=== PATIENT | female | born 1935 | race Caucasian/White ===

== ENCOUNTER → 2017-02-22 | Outpatient (CLI) | payer OTHER, MEDICARE | LOC: MMPC 09:00 | PROVIDERS: ATTEND Nurse Practitioner Family | DX: K57.90 Diverticulosis of intestine, part unspecified, without perforation or abscess without bleeding (principal); I10 Essential (primary) hypertension | CPT/HCPCS: 99214; G0463 ==

== ENCOUNTER → 2017-03-21 | Outpatient (CLI) | payer OTHER, MEDICARE | LOC: MOB LAB 13:10 | DX: N39.0 Urinary tract infection, site not specified (principal); R31.9 Hematuria, unspecified; R82.99 Other abnormal findings in urine | CPT/HCPCS: 81002; 87077; 87088; 87186 ×2; 99212; G0463 ==

== ENCOUNTER → 2017-03-24 | Outpatient (CLI) | payer OTHER, MEDICARE ==
--- NOTE | 2017-03-24 11:12 | DI ---
DUPLEX COLOR DOPPLER CAROTID ULTRASOUND, 03/24/2017 8:55 AM: Clinical History: Vertigo. Previous Exam: None at this facility. Technique: 2D real time imaging is supplemented with duplex color doppler ultrasound imaging. RIGHT CAROTID ARTERY: 2D real time imaging of the right carotid system shows minimal intimal thickening of the right common carotid artery with dense calcifications in the carotid bulb that extend into the proximal portions of the right internal and external carotid arteries. Peak systolic velocities through the right commo n carotid, the external carotid, and the internal carotid are 92 cm/s, 131 cm/s, and 103 cm/s, respec tively. The value for the right common carotid artery and right internal carotid artery corresponds t o diameter stenoses of 0-49%. The values for the right external carotid artery corresponds to a diame ter stenosis of 50-74%, but much closer to 50%. LEFT CAROTID ARTERY: 2D real time imaging of the left carotid system shows minimal intimal thickening of the left common c arotid artery with dense calcifications in the carotid bulb that extend into the proximal portions of the left internal and external carotid arteries. Peak systolic velocities through the left common ca rotid, the external carotid, and the internal carotid are 110 cm/s, 84 cm/s, and 119 cm/s, respective ly. All values correspond to diameter stenoses of 0-49%. VERTEBRAL ARTERIES: There is antegrade flow through both vertebral arteries Cardiac rhythm is regular. Peak systolic [place] through the visualized portions of the right and left vertebral arteries are 52 cm/s and 51 cm /s, respectively. Both values correspond to diameter stenoses of 0-49%. There was sinus bradycardia d uring the entire exam and a heart rate varied between 51-59 beats per minute. Readin. There is no hemodynamically significant stenosis of either carotid system. 2. There is antegrade flow through both vertebral arteries and the cardiac rhythm is regular althoug h there was sinus bradycardia throughout the entire exam. The heart rate varied between 51-59 beats p er minute.
== END ==
LOC: US 03-23 13:42
PROVIDERS: ATTEND Nurse Practitioner Family
DX: R42 Dizziness and giddiness (principal); R00.1 Bradycardia, unspecified
CPT/HCPCS: 93880

== ENCOUNTER → 2017-04-12 | Outpatient (CLI) | payer OTHER, MEDICARE ==
[2017-04-12 17:06] LABS: BILIRUBIN,URINE NEGATIVE (NEG); CLARITY,URINE Slightly Cloudy (CLEAR); COLOR,URINE YELLOW; GLUCOSE, URINE (UA) NEGATIVE (NEG); NITRATE,URINE NEGATIVE (NEG); OCCULT BLOOD,URINE Trace-intact (NEG); PROTEIN,URINE 30 mg/dl (NEG); UROBILINOGEN,URINE 0.2 mg/dL (0.2)
[2017-04-12 17:13] LABS: BACTERIA,URINE MANY; RBC,URINE 0-2 /hpf; SQUAMOUS EPITHELIAL CELL,UR MANY; URINE SAMPLE TYPE VOIDED SPECIMEN; WBC,URINE >100
== END ==
LOC: MOB LAB 15:47
PROVIDERS: ATTEND Nurse Practitioner Family
DX: R30.0 Dysuria (principal); R82.99 Other abnormal findings in urine; Z87.440 Personal history of urinary (tract) infections
CPT/HCPCS: 81001; 87077; 87088; 87185; 87186

== ENCOUNTER → 2017-04-27 | Outpatient (CLI) | payer OTHER, MEDICARE | LOC: LAB 14:08 | PROVIDERS: ATTEND Nurse Practitioner Family | DX: R19.7 Diarrhea, unspecified (principal); R10.9 Unspecified abdominal pain; R14.0 Abdominal distension (gaseous) | CPT/HCPCS: 82272; 87046; 87205; 87328; 87329; 87338 ==